=== PATIENT | male | born 1995 | race Caucasian/White ===

== ENCOUNTER 2018-09-29 02:02 | Emergency (ER) | payer BC, OTHER ==
[~2018-09-29] VITALS: Ht 193 cm; Wt 95.5 kg
[~2018-09-29 02:02] MED LIST: ACET650T3 PO; BACT800T5 PO; OXYC-517 PO
[2018-09-29] MEDS ORDERED: ONDANSETRON 4MG/2ML VIAL (J2405) IV ONE (03:30)
[2018-09-29] MEDS ORDERED: NS 1,000 ML IV ONE (03:30)
[2018-09-29] MEDS ORDERED: PANTOPRAZOLE 40MG INJ (PROTONIX) (C9113) IV ONE (03:30)
[2018-09-29 03:47] LABS: BASO % 0.2 % (0.0-1.0); EOS # 0.1 10^3/uL (0.0-0.50); EOS % 0.5 % (0.0-3.0); HEMOGLOBIN 16.5 g/dl (13.5-17.5); LYMPH # 0.8 10^3/uL (1.5-6.5); LYMPH % 4.5 % (24.0-44.0); MEAN CORPUSCULAR HEMOGLOBIN 31.7 pg (27.0-33.0); MEAN CORPUSCULAR HGB CONC 34.4 g/dl (32.0-36.5); MEAN CORPUSCULAR VOLUME 92.3 fl (80.0-96.0); MONO # 0.9 10^3/uL (0.0-0.8); MONO % 5.3 % (0.0-5.0); NEUTROPHILS # 14.8 10^3/uL (1.8-7.7); NEUTROPHILS % 89.1 % (36.0-66.0); PLATELET COUNT, AUTOMATED 227 10^3/uL (150-450); WHITE BLOOD COUNT 16.6 10^3/uL (4.0-10.0)
[2018-09-29 03:57] LABS: INR 1.11; PROTHROMBIN TIME 14.4 SECONDS (12.1-14.4)
[2018-09-29 03:58] LABS: PARTIAL THROMBOPLASTIN TIME 29.2 SECONDS (25.4-37.6)
[2018-09-29 04:05] LABS: ALBUMIN 4.7 GM/DL (3.2-5.2); ALT/SGPT 23 U/L (12-78); BILIRUBIN,DIRECT 0.2 MG/DL (0.0-0.2); BILIRUBIN,TOTAL 0.8 MG/DL (0.2-1.0); BLOOD UREA NITROGEN 22 MG/DL (7-18); CALCIUM LEVEL 9.3 MG/DL (8.5-10.1); CARBON DIOXIDE LEVEL 28 MEQ/L (21-32); CHLORIDE LEVEL 103 MEQ/L (98-107); GLOMERULAR FILTRATION RATE > 60.0 (>60); GLUCOSE, FASTING 105 MG/DL (70-100); LIPASE 104 U/L (73-393); POTASSIUM SERUM 4.5 MEQ/L (3.5-5.1); SODIUM LEVEL 138 MEQ/L (136-145); TOTAL PROTEIN 7.5 GM/DL (6.4-8.2)
[2018-09-29] MEDS ORDERED: CARA1TAB6 PO (05:28)
[2018-09-29] MEDS ORDERED: PEPC1TAB5 PO (05:28)
[2018-09-29] MEDS ORDERED: OMEP40CA2 PO (05:28)
[2018-09-29 05:30] VITALS: BP 126/67
--- NOTE | 2018-09-29 09:02 | REP ---
Abdomen series: Four views. History: Abdomen pain. Comparison study: March 12, 2006. Findings: Upright chest radiograph is normal. There is no evidence of infiltrate or free subdiaphragmatic air. Heart is not enlarged. Supine and erect views of the abdomen demonstrate a normal bowel gas pattern with air and stool in a nondistended colon. No small bowel dilation is seen. Psoas margins and flank stripes are intact. No mass, organomegaly, or pathologic calcification is appreciated. Impression: Negative acute abdominal series. Electronically Signed by Joshua Rousseau MD 09/29/2018 08:54 A
== END 2018-09-29 05:52 | disposition home or self-care (01) ==
LOC: M ED 02:02
DX: K27.9 Peptic ulcer, site unspecified, unspecified as acute or chronic, without hemorrhage or perforation (principal); K21.9 Gastro-esophageal reflux disease without esophagitis; Z72.0 Tobacco use
CPT/HCPCS: 74021; 80048; 80076; 83690; 85025; 85610; 85730; 86850; 86900; 86901; 96374; 96375; 99284; C9113; J2405

== ENCOUNTER → 2018-10-10 | Outpatient (REF) | payer OTHER ==
[~2018-10-10] MED LIST changes: +CARA1TAB6 PO; +OMEP40CA2 PO; +PEPC1TAB5 PO
[2018-10-10 15:56] LABS: BASO % 0.5 % (0.0-1.0); EOS # 0.1 10^3/uL (0.0-0.50); EOS % 1.6 % (0.0-3.0); HEMATOCRIT 46.5 % (42.0-52.0); HEMOGLOBIN 15.4 g/dl (13.5-17.5); LYMPH # 1.6 10^3/uL (1.5-6.5); LYMPH % 26.5 % (24.0-44.0); MEAN CORPUSCULAR HEMOGLOBIN 30.6 pg (27.0-33.0); MEAN CORPUSCULAR HGB CONC 33.1 g/dl (32.0-36.5); MEAN CORPUSCULAR VOLUME 92.4 fl (80.0-96.0); MONO # 0.4 10^3/uL (0.0-0.8); MONO % 6.4 % (0.0-5.0); NEUTROPHILS % 64.7 % (36.0-66.0); PLATELET COUNT, AUTOMATED 287 10^3/uL (150-450); RED BLOOD COUNT 5.03 10^6/uL (4.30-6.10); WHITE BLOOD COUNT 6.1 10^3/uL (4.0-10.0)
[2018-10-10 16:19] LABS: CHOLESTEROL LEVEL 163 MG/DL (<200); HDL CHOLESTEROL 42 MG/DL (>40); HEMOGLOBIN A1c 5.2 %; LDL CHOLESTEROL 97 MG/DL (<100); NON-HDL-C 121 MG/DL; TRIGLYCERIDES LEVEL 121 MG/DL (<150)
[2018-10-10 17:17] LABS: CHLAMYDIA DNA AMPLIFICATION NEGATIVE (NEGATIVE); GC DNA AMPLIFICATION NEGATIVE (NEGATIVE)
[2018-10-11 10:36] LABS: HIV 1&2 SCREEN CENTAUR NEGATIVE (NEGATIVE)
[2018-10-13 00:06] LABS: H PYLORI SERUM QUANT IGM <9.0 units (0.0-8.9); HSV TYPE I IgG SPECIFIC <0.91 index (0.00-0.90); HSV TYPE II IgG SPECIFIC <0.91 index (0.00-0.90)
== END ==
LOC: M SFHCPLAZ 13:13
PROVIDERS: ATTEND Family Medicine
DX: Z13.1 Encounter for screening for diabetes mellitus (principal); Z13.220 Encounter for screening for lipoid disorders; K92.2 Gastrointestinal hemorrhage, unspecified; Z20.2 Contact with and (suspected) exposure to infections with a predominantly sexual mode of transmission

== ENCOUNTER 2018-11-13 08:18 | Day surgery (SDC) | payer BC, OTHER ==
[~2018-11-13] VITALS: Ht 190.5 cm; Wt 89.8 kg
[~2018-11-13 08:18] MED LIST changes: +NS 1,000 ML IV ONE
[2018-11-13] MEDS ORDERED: LIDOCAINE 2% INJ 100 MG/5 ML SDV (FOR ANES.) As Ordered ONE (09:18)
[2018-11-13] MEDS ORDERED: PROPOFOL 200 MG/20 ML VIAL As Ordered ONE (09:18)
--- NOTE | 2018-11-13 09:36 | ROOR ---
Patient Name: Flaquito Stahl Procedure Date: 11/13/2018 9:13 AM Date of : 1995 Age: 23 Room: [facility] Gender: Male Note Status: Finalized Procedure: Upper Endoscopy + Biopsies Indications: Heartburn, Hematemesis, Exclusion of ulcer of the GI tract Providers: Sabino Claire MD Referring MD: 1. No Referring Physician 1. No Referring Physician, Admin. Requesting Provider: Medicines: Monitored Anesthesia Care Complications: No immediate complications. Procedure: Pre-Anesthesia Assessment: - The heart rate, respiratory rate, oxygen saturations, blood pressure, adequacy of pulmonary ventilation, and response to care were monitored throughout the procedure. The Endoscope was introduced through the mouth, and advanced to the second part of duodenum. The upper GI endoscopy was accomplished without difficulty. The patient tolerated the procedure well. Findings: The Z-line was variable and was found 40 cm from the incisors. A medium-sized hiatal hernia was present. Biopsies were taken with a cold forceps for histology. No other significant abnormalities were identified in a careful examination of the stomach. Biopsies were taken with a cold forceps in the gastric antrum for Helicobacter pylori testing. The exam of the duodenum was otherwise normal. Impression: - Z-line variable, 40 cm from the incisors. - Medium-sized hiatal hernia. Biopsied. - Biopsies were taken with a cold forceps for Helicobacter pylori testing. - The examination was otherwise normal. Recommendation: - Patient has a contact number available for emergencies. The signs and symptoms of potential delayed complications were discussed with the patient. Return to normal activities tomorrow. Written discharge instructions were provided to the patient. - High fiber diet. - Discharge patient to home. - Follow an antireflux regimen. - Continue present medications. - Await pathology results. - Telephone GI clinic for pathology results in 1 week. - Use Prilosec (omeprazole) 40 mg PO BID. - The findings and recommendations were discussed with the patient's family. Sabino Claire MD Sabino Claire MD 11/13/2018 9:35:54 AM Electronically signed by Sabino Claire MD Number of Addenda: 0 Note Initiated On: 11/13/2018 9:13 AM Estimated Blood Loss: Estimated blood loss: none.
[2018-11-13 10:13] VITALS: BP 138/85
== END 2018-11-13 10:16 | disposition home or self-care (01) ==
LOC: M OPP 08:18
PROVIDERS: ATTEND Internal Medicine Gastroenterology
DX: K22.8 Other specified diseases of esophagus (principal); K44.9 Diaphragmatic hernia without obstruction or gangrene; R12 Heartburn; K92.0 Hematemesis

== ENCOUNTER 2019-01-11 02:14 | Emergency (ER) | payer BC, OTHER ==
[~2019-01-11] VITALS: Ht 190.5 cm; Wt 90.9 kg
[~2019-01-11 02:14] MED LIST changes: -NS 1,000 ML IV ONE
[2019-01-11 04:13] VITALS: BP 152/84
--- NOTE | 2019-01-11 07:25 | REP ---
Right foot four views : There is no fracture or dislocation. Mineralization and joint spaces are normal. There are no calcifications or foreign bodies. Impression: Negative right foot . Electronically Signed by Rigoberto Bauer MD 01/11/2019 07:16 A
--- NOTE | 2019-01-11 07:26 | REP ---
Right ankle four views: There is soft tissue edema laterally. There is no fracture or dislocation. The mortise is symmetric. Mineralization is normal. There are no calcifications or foreign bodies. Impression: Soft tissue edema laterally. No fracture or dislocation. Electronically Signed by Rigoberto Bauer MD 01/11/2019 07:17 A
== END 2019-01-11 04:14 | disposition home or self-care (01) ==
LOC: M ED 02:14
DX: S93.401A Sprain of unspecified ligament of right ankle, initial encounter (principal); X50.9XXA Other and unspecified overexertion or strenuous movements or postures, initial encounter; Y92.89 Other specified places as the place of occurrence of the external cause

== ENCOUNTER 2020-11-14 06:12 | Emergency (ER) | payer BC, OTHER ==
[~2020-11-14] VITALS: Ht 190.5 cm; Wt 100.0 kg
[~2020-11-14 06:12] MED LIST changes: -OMEP40CA2 PO; +OMEP40CA97 PO
--- NOTE | 2020-11-14 07:55 | REP ---
INDICATION: injury. COMPARISON: Comparison right ankle radiographs are from January 11, 2019.. TECHNIQUE: Four views of the right ankle are presented. FINDINGS: Ankle mortise is intact. No fracture or subluxation is seen. Minimal anterior soft tissue swelling is seen. Bones, joints, and soft tissues are otherwise unremarkable. IMPRESSION: No evidence of fracture or subluxation. <Electronically signed by Silvino Rousseau > 11/14/20 075
[2020-11-14] MEDS ORDERED: KETOROLAC TROMETHAMINE 10 MG TAB PO ONE (08:20)
--- NOTE | 2020-11-14 08:22 | REP ---
INDICATION: injury. COMPARISON: Comparison radiographs of the right foot are from January 11, 2019.. TECHNIQUE: Four views of the right foot are provided. FINDINGS: Four views of the right foot demonstrate normal bones, joints, and soft tissues. No fracture or subluxation is seen. No opaque foreign body noted. There is a well corticated ossicle at the superior surface of the talus at the talonavicular articulation. This is not felt to be an acute fracture. No bony destructive lesion is seen. No evidence of opaque foreign body. IMPRESSION: No acute fracture or subluxation seen.. <Electronically signed by Silvino Rousseau > 11/14/20 0819
[2020-11-14 08:34] VITALS: BP 160/87
== END 2020-11-14 08:43 | disposition home or self-care (01) ==
LOC: M ED 06:12
DX: S93.431A Sprain of tibiofibular ligament of right ankle, initial encounter (principal); W22.8XXA Striking against or struck by other objects, initial encounter; Y92.009 Unspecified place in unspecified non-institutional (private) residence as the place of occurrence of the external cause; Y93.89 Activity, other specified; Y99.9 Unspecified external cause status

== ENCOUNTER → 2021-03-19 | Outpatient (CLI) | payer BC ==
[~2021-03-19] MED LIST changes: +OMEP40CA4 PO; -OMEP40CA97 PO
--- NOTE | 2021-03-19 15:48 | REP ---
INDICATION: R22.31 MASS OF R FOREARM. COMPARISON: None. TECHNIQUE: Real-time sonographic evaluation of right forearm soft tissues performed at the site of reported palpable lump. FINDINGS: At the site of the palpable abnormality there is an oval mildly lobulated cyst containing a few thin internal septations. This measures 2.3 x 1.2 x 1.8 cm. IMPRESSION: At the site of the palpable abnormality there is an oval mildly lobulated cyst containing a few thin internal septations. This measures 2.3 x 1.2 x 1.8 cm. <Electronically signed by Rigoberto Avilez > 03/19/21 [id number]
== END ==
LOC: M WHC 14:34
PROVIDERS: ATTEND Physician Assistant
DX: M71.38 Other bursal cyst, other site (principal)

== ENCOUNTER → 2021-06-10 | Outpatient (CLI) | payer BC ==
--- NOTE | 2021-06-10 11:57 | REP ---
INDICATION: RT WRIST NEPOLASM. COMPARISON: None. TECHNIQUE: Four views FINDINGS: There is no acute fracture or destructive osseous lesion. There is evidence of focal soft tissue swelling in the lateral wrist soft tissues at the level of the distal radial diaphysis. IMPRESSION: No osseous abnormality. Soft tissue swelling as described above. Pre and post gadolinium enhanced MRI is recommended. <Electronically signed by Srini Ratliff > 06/10/21 [id number]
== END ==
LOC: M SOG 11:27
PROVIDERS: ATTEND Orthopaedic Surgery Sports Medicine
DX: M79.89 Other specified soft tissue disorders (principal)

== ENCOUNTER → 2021-07-08 | Outpatient (CLI) | payer BC, OTHER ==
[~2021-07-08] MED LIST changes: +PROHANCE 279.3MG/ML 15ML VIAL As Ordered ONE; +PROHANCE 279.3MG/ML 5ML VIAL As Ordered ONE
== END ==
LOC: M RAD 07:21
PROVIDERS: ATTEND Orthopaedic Surgery Sports Medicine
DX: D48.7 Neoplasm of uncertain behavior of other specified sites (principal)
CPT/HCPCS: 73223; A9576

== ENCOUNTER → 2024-02-28 | Outpatient (CLI) | payer OTHER ==
[~2024-02-28] MED LIST changes: +BACI500O8 TOP; +CLON1TAB8; +EMTR1TAB16 PO; -PROHANCE 279.3MG/ML 15ML VIAL As Ordered ONE; -PROHANCE 279.3MG/ML 5ML VIAL As Ordered ONE; +RALT40TA PO
== END ==
LOC: M OUTALCOH 08:49
PROVIDERS: ATTEND Psychiatry & Neurology Psychiatry
DX: F10.20 Alcohol dependence, uncomplicated (principal); F17.200 Nicotine dependence, unspecified, uncomplicated

== ENCOUNTER 2024-03-03 15:48 | Emergency (ER) | payer OTHER ==
[~2024-03-03] VITALS: Ht 190.5 cm; Wt 113.7 kg
[~2024-03-03 15:48] MED LIST changes: -BACI500O8 TOP; -CLON1TAB8; -EMTR1TAB16 PO; -RALT40TA PO
[2024-03-03] MEDS ORDERED: CLON1TAB8 (15:59)
[2024-03-03] MEDS: LIDOCAINE W/EPINEPHRINE 1% 20ML VIAL SC ONE (18:23)
[2024-03-03] MEDS: BOOSTRIX VACCINE (TETANUS/DIPHTH/ACEL. PERTUSSIS) 0.5ML SYR IM.IMMUN ONE (18:25)
[2024-03-03] MEDS: NEOSPORIN OINT 0.9 GM PKT TOP ONE (18:27)
[2024-03-03 18:59] LABS: BASO % 0.4 % (0.0-1.0); EOS # 0.2 10^3/uL (0.0-0.5); EOS % 2.1 % (0.0-3.0); HEMATOCRIT 44.4 % (42.0-52.0); HEMOGLOBIN 15.2 g/dl (13.5-17.5); LYMPH # 2.2 10^3/uL (1.5-5.0); LYMPH % 30.4 % (24.0-44.0); MEAN CORPUSCULAR HEMOGLOBIN 32.9 pg (27.0-33.0); MEAN CORPUSCULAR HGB CONC 34.2 g/dl (32.0-36.5); MEAN CORPUSCULAR VOLUME 96.1 fl (80.0-96.0); MONO # 0.5 10^3/uL (0.0-0.8); MONO % 6.9 % (2.0-8.0); NEUTROPHILS # 4.3 10^3/uL (1.5-8.5); NEUTROPHILS % 59.8 % (36.0-66.0); PLATELET COUNT, AUTOMATED 257 10^3/uL (150-450); RED BLOOD COUNT 4.62 10^6/uL (4.30-6.10); WHITE BLOOD COUNT 7.2 10^3/uL (4.0-10.0)
[2024-03-03] MEDS ORDERED: RALT40TA PO (19:22)
[2024-03-03] MEDS ORDERED: EMTR1TAB16 PO (19:22)
[2024-03-03] MEDS ORDERED: BACI500O8 TOP (19:25)
[2024-03-03 19:26] LABS: ALBUMIN 4.7 G/DL (3.2-5.2); ALKALINE PHOSPHATASE 70 U/L (46-116); ALT/SGPT 41 U/L (7.0-40); AST/SGOT 20 U/L (<34); BILIRUBIN,TOTAL 0.5 MG/DL (0.3-1.2); BLOOD UREA NITROGEN 13 MG/DL (9-23); CARBON DIOXIDE LEVEL 28 MMOL/L (20-31); CHLORIDE LEVEL 107 MMOL/L (98-107); GLOMERULAR FILTRATION RATE > 60.0 (>60); GLUCOSE, FASTING 93 MG/DL (60-100); POTASSIUM SERUM 3.6 MMOL/L (3.5-5.1); SODIUM LEVEL 141 MMOL/L (136-145); TOTAL PROTEIN 7.9 G/DL (5.7-8.2)
[2024-03-03 19:28] LABS: HEPATITIS B SURFACE ANTIBODY NEGATIVE (POSITIVE)
[2024-03-03 19:40] LABS: HEPATITIS B SURFACE ANTIGEN NEGATIVE (NEGATIVE)
[2024-03-03 19:53] LABS: HIV 1&2 SCREEN NEGATIVE (NEGATIVE)
[2024-03-03 20:02] LABS: HEPATITIS C VIRUS ABY INDEX < 0.02 INDEX (<0.8)
[2024-03-03 20:07] VITALS: BP 135/86; TEMP 97.6; O2SAT 99
[2024-03-03] MEDS: HEPATITIS B VACCINE 20MCG/ML 1ML SYRINGE (ADULT DOSE) IM.IMMUN ONE (20:35)
[2024-03-03] MEDS: HEPATITIS B IMMUNE GLOBULIN 5ML INJ IM.IMMUN ONE (20:36)
== END 2024-03-03 20:55 | disposition home or self-care (01) ==
LOC: M ED 15:48
DX: S61.511A Laceration without foreign body of right wrist, initial encounter (principal); X99.9XXA Assault by unspecified sharp object, initial encounter; Y92.9 Unspecified place or not applicable; Y93.9 Activity, unspecified; Y99.0 Civilian activity done for income or pay; F41.9 Anxiety disorder, unspecified

== ENCOUNTER 2024-03-08 09:51 | Outpatient (RCR) | payer OTHER ==
[~2024-03-08 09:51] MED LIST changes: +BACI500O8 TOP; +CLON1TAB8; +EMTR1TAB16 PO; +RALT40TA PO
== END 2024-03-26 ==
LOC: M OUTALCOH 09:51
PROVIDERS: ATTEND Psychiatry & Neurology Psychiatry
DX: F10.20 Alcohol dependence, uncomplicated (principal); F17.200 Nicotine dependence, unspecified, uncomplicated